=== PATIENT | male | born 2000 | race Caucasian/White ===

== ENCOUNTER 2019-12-21 06:46 | Day surgery (SDC) | payer OTHER, SELFPAY ==
--- NOTE | 2019-12-21 08:15 | HP ---
HISTORY OF PRESENT ILLNESS: This is a 19-year-old man, who presented to [facility] last night with insidious onset of periumbilical abdominal pain, which started 3 to 4 days ago. The pain was initially described as crampy and rated at 4/10, but intensified 2 days ago to 9/10. At that time, the pain was associated with multiple episodes of nausea and nonbilious emesis. He took salh-ikz-pvmoind remedies with minimum relief. But yesterday, he was feeling a little better. However, the pain was now settled in the right lower quadrant. As a result, he presented to the emergency department. He denies any fevers or chills. He admits to urinary frequency and urgency, but no dysuria. He denies any diarrhea or unexplained weight loss. PAST MEDICAL HISTORY: Denies any previous medical problems. SURGICAL HISTORY: None except for extraction of wisdom tooth. SOCIAL HISTORY: He is single, lives independently. 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 He admits to occasional intake of ethanol in moderate amounts. He smokes cigarettes and marijuana occasionally. He denies any other illicit drug abuse. FAMILY HISTORY: He denies any family history of diabetes mellitus, heart disease, hypertension, or cancer. CURRENT MEDICATIONS: None. ALLERGIES: THE PATIENT DENIES ANY KNOWN DRUG ALLERGIES. REVIEW OF SYSTEMS: Ten-point review of systems is essentially unremarkable except as stated in past medical history and chief complaint. PHYSICAL EXAMINATION: GENERAL: A 19-year-old normally developed man, who is otherwise coherent and interactive, appears stated age. The patient is alert and oriented x3, appears to be in no acute distress at the time of my evaluation. VITAL SIGNS: Blood pressure 125/69, pulse is 68, respiratory rate is 18, temperature 97.6 degrees Fahrenheit, oxygen saturation 98% on room air. HEENT: Normocephalic and atraumatic. Pupils are equal, round, reactive to light and accommodation. Extraocular muscles are intact bilaterally. No scleral icterus is present. HEART: Regular rate and rhythm. No murmurs or gallops auscultated. LUNGS: Clear to auscultation bilaterally. Breathing, regular and nonlabored. ABDOMEN: Soft with right lower quadrant tenderness to palpation. He has a positive Rovsing sign. Liver and spleen otherwise nonpalpable below costal margin. EXTREMITIES: 2+ radial and pedal pulses bilaterally. No ankle edema is present. NEUROLOGIC: No focal deficits present. LABORATORY DATA: Laboratory studies from [facility] includes an unremarkable urinary analysis. CBC with white blood cell count of 8000, hemoglobin and hematocrit are 16.0 and 45.4 respectively. The platelet count is 178,000. Metabolic profile; sodium 138, potassium 4.7, chloride 97, bicarb is 30, BUN is 15, creatinine is 1.1. AST and ALT 34 and 47 respectively. I have personally reviewed the accompanying CT scan of the abdomen and pelvis from [facility] as well. This shows dilated thick-walled appendix with periappendiceal fat stranding and appendicolith. IMPRESSION: Acute appendicitis. PLAN: Laparoscopic appendectomy. The above findings and plan have been discussed with the patient. I informed him of the risks and benefits of the proposed surgery to include, but not limited to bleeding, infection, injury to bowel or surrounding structures. Additionally, I have advised him that given 3 to 4-day history of appendicitis, there is a high likelihood of rupture which may warrant admission with IV antibiotics, but those decisions will be made based on findings at surgery. The patient indicates understanding of the information I have provided him today. I have answered his questions. He has granted consent for this admission and surgical intervention. At his request, I have also spoken to his father, Mr. Magallon, on his way from [place] to [place]. He too has indicated understanding of the information provided. I did answer his questions as well. Job ID: [id number] [facility]
[2019-12-21] MEDS ORDERED: Fentanyl 100 MCG/2 ML VIAL ONE ×3 (09:44→12:18)
[2019-12-21] MEDS ORDERED: Bupivacaine/Epinephrine 0.25% 30 ML VIAL ONE (10:19)
[2019-12-21] MEDS ORDERED: cefOXitin Sodium/Dextrose 2 GM/50 ML BAG ONE (11:03)
[2019-12-21] MEDS ORDERED: Ketorolac Tromethamine 30 MG/ML VIAL ONE (12:05)
[2019-12-21] MEDS ORDERED: Rocuronium Bromide 10 MG/ML (10ML VIAL) ONE (12:05)
[2019-12-21] MEDS ORDERED: Lidocaine 1% PF 5 ML VIAL ONE (12:05)
[2019-12-21] MEDS ORDERED: PROPOFOL 200 MG/20 ML VIAL ONE (12:05)
[2019-12-21] MEDS ORDERED: Glycopyrrolate 0.2 MG/ML 5 ML SYRINGE ONE (12:05)
[2019-12-21] MEDS ORDERED: Ondansetron PF 4 MG/2 ML Vial ONE (12:05)
--- NOTE | 2019-12-21 12:34 | OP ---
DATE OF PROCEDURE: 12/21/2019 PREOPERATIVE DIAGNOSIS: Acute appendicitis. POSTOPERATIVE DIAGNOSIS: Acute retrocecal appendicitis with localized peritonitis. No evidence of rupture. OPERATION PERFORMED: Laparoscopic appendectomy. ANESTHESIA: General endotracheal. ESTIMATED BLOOD LOSS: 5 mL. FLUIDS GIVEN: 600 mL crystalloids. COUNTS: Sponge and instrument counts were verified as correct x2. COMPLICATIONS: None apparent at the time of operation. INDICATIONS FOR OPERATION: A 19-year-old man, who was seen in a stand-alone emergency department last night with a 3- to 4-day history of what started as periumbilical abdominal pain, which has settled in the right lower quadrant, associated with multiple episodes of nausea and nonbilious emesis. Clinical and radiographic examinations were consistent with acute appendicitis, for which the patient was brought to the operating room today for laparoscopic appendectomy. Findings are consistent with dilated suppurative retrocecal appendix with periappendiceal peritonitis and no abscess. DESCRIPTION OF PROCEDURE: Informed consent was obtained from the patient and he was brought to the operating room and placed in supine position. Following general anesthesia, a Zavala catheter was inserted and placed to bedside drain. The abdomen was sterilely prepped and draped in usual fashion. The skin below the umbilicus was infiltrated with 0.25% Marcaine with epinephrine. A small curvilinear infraumbilical incision was made using 11 scalpel. Umbilical stalk was grasped with Noel and elevated. Veress needle was inserted through the incision and placed in the peritoneal cavity, through which the abdomen was insufflated with 3.5 L of CO2 gas. Intraabdominal pressure was noted at 2 mmHg. Following abdominal insufflation, Veress needle was removed and a 5 mm trocar introduced using a Visiport under laparoscopy. Laparoscopy confirmed proper placement of the port, no injuries to underlying structures. Additional laparoscopy reveals the right lower quadrant partially obscured by omental adhesions. Under direct laparoscopy, two 5 mm suprapubic and left lower quadrant ports were placed after the overlying skin was infiltrated with 0.25% Marcaine with epinephrine, appropriate incision was made. The patient was placed in a Trendelenburg position, rotated to his left. I introduced a Ntractiveige grasper through the left lower quadrant port site, using this to bluntly take down omental adhesions to expose the distal ileum, which was plastered to the right lateral gutter. Using the LigaSure device, the adhesions were taken down. Care was taken to avoid injuries to bowel. We were able to follow the distal ileum to the ileocecal junction. At that time, a retrocecal appendix was noted, which was also welded to the right lateral gutter. This was bluntly dissected off the abdominal wall using Endo suction catheter. The appendix was then grasped with Endo Timothy forceps, which was introduced through the suprapubic port site. This was elevated. The mesoappendix was serially divided down to the base using the LigaSure device with good hemostasis. The appendix itself was then divided at the appendicocecal junction between Endoloop. The appendix was delivered off the abdominal cavity using an EndoCatch. Operative site was irrigated with saline, noting no other pathology. The small bowel was run from the ileocecal junction down to proximal 2 feet. No Meckel diverticulum was identified. Finding no other pathology, laparoscopy was terminated. The abdomen was desufflated. All ports and instruments were removed and accounted for. Skin incisions then closed using 4-0 Monocryl suture in subcuticular fashion. Dermabond was applied over incisional closure. The patient tolerated this operation without any apparent complication and was returned to recovery room in satisfactory condition. Job ID: [id number]
== END 2019-12-21 15:45 | disposition home or self-care (01) ==
LOC: SDC 06:46
PROVIDERS: ATTEND Surgery
PROC: 0DTJ4ZZ Resection of Appendix, Percutaneous Endoscopic Approach (ICD-10-PCS; principal; 2019-12-21)
DX: K35.30 Acute appendicitis with localized peritonitis, without perforation or gangrene (principal)
CPT/HCPCS: 88304; J0694; J1885; J2405; J2704; J3010